=== PATIENT | male | born 1955 | race Caucasian/White ===

== ENCOUNTER 2022-03-03 21:05 | Emergency (ER) | payer MEDICARE ==
[2022-03-03 22:43] LABS: HEMOGLOBIN 10.2 gm/dl (14.0-17.5); RED BLOOD COUNT 4.3 M/UL (4.20-5.50); WHITE BLOOD COUNT 6.1 K/UL (4.5-11.0)
[2022-03-04] MEDS ORDERED: ENDOCET 5-3251 EACH PO (00:43)
== END 2022-03-04 01:04 | disposition home or self-care (01) ==
LOC: ER1 21:05
PROVIDERS: Emergency Medicine
DX: M25.461 Effusion, right knee (principal)
CPT/HCPCS: 73562; 85025; 85652; 86140; 99283

== ENCOUNTER → 2022-03-19 | Outpatient (CLI) | payer MEDICARE, OTHER ==
[~2022-03-19] MED LIST: ENDOCET 5-3251 EACH PO
== END ==
LOC: US 11:00
DX: M79.89 Other specified soft tissue disorders (principal); R93.6 Abnormal findings on diagnostic imaging of limbs
CPT/HCPCS: 93971

== ENCOUNTER → 2022-05-28 | Outpatient (CLI) | payer MEDICARE ==
[2022-05-28 15:22] LABS: HEMOGLOBIN 13.3 gm/dl (14.0-17.5); RED BLOOD COUNT 5.79 M/UL (4.20-5.50); WHITE BLOOD COUNT 5.9 K/UL (4.5-11.0)
== END ==
LOC: CT 15:00
PROVIDERS: Orthopaedic Surgery
DX: T84.032A Mechanical loosening of internal right knee prosthetic joint, initial encounter (principal); M25.561 Pain in right knee; T84.53XA Infection and inflammatory reaction due to internal right knee prosthesis, initial encounter; Z01.812 Encounter for preprocedural laboratory examination; M17.11 Unilateral primary osteoarthritis, right knee; M23.41 Loose body in knee, right knee; M25.461 Effusion, right knee; R93.6 Abnormal findings on diagnostic imaging of limbs
CPT/HCPCS: 36415; 73702; 82565; 84520; 85027; 85652; 86140; Q9967